=== PATIENT | male | born 2000 | race Caucasian/White ===

== ENCOUNTER → 2023-02-23 14:32 | Outpatient (BNVA) | payer OTHER, SELFPAY | PROVIDERS: Visit Provider Physician Assistant Medical | DX: S60.222A Contusion of left hand, initial encounter (principal); X50.1XXA Overexertion from prolonged static or awkward postures, initial encounter | CPT/HCPCS: 99204 ==

== ENCOUNTER → 2023-02-25 13:15 | Outpatient (BNVA) | payer OTHER, SELFPAY | PROVIDERS: Visit Provider Physician Assistant | DX: S60.222A Contusion of left hand, initial encounter (principal); X50.1XXA Overexertion from prolonged static or awkward postures, initial encounter | CPT/HCPCS: 99214 ==

== ENCOUNTER → 2023-02-28 15:45 | Outpatient (BNVA) | payer OTHER, SELFPAY | PROVIDERS: Visit Provider Physician Assistant Medical | DX: S62.122D Displaced fracture of lunate [semilunar], left wrist, subsequent encounter for fracture with routine healing (principal); X50.1XXD Overexertion from prolonged static or awkward postures, subsequent encounter | CPT/HCPCS: 99213 ==

== ENCOUNTER 2023-09-10 03:22 | Emergency (ER) | payer OTHER, SELFPAY ==
--- NOTE | ~2023-09-10 | XR_ITS ---
EXAMINATION: XR HAND, LEFT CLINICAL INFORMATION: Fall. Pain. COMPARISON: 02/23/2023 TECHNIQUE: PA, lateral, and oblique views of the left hand. FINDINGS: There is a distal radial plate and multiple screws in place bridging a distal radial fracture. Dense lunate is again seen similar to previous. No acute fracture identified. There is soft tissue swelling about the distal forearm. XR/XR hand LT 2V IMPRESSION: Status post ORIF of distal radial fracture. No acute fracture identified. Soft tissue swelling about the distal forearm.
--- NOTE | ~2023-09-10 | XR_ITS ---
EXAMINATION: XR FOREARM, LEFT CLINICAL INFORMATION: Fall. Pain. COMPARISON: Correlation made with hand x-ray performed 09/09/2023 TECHNIQUE: AP and lateral views of the left forearm were obtained. FINDINGS: There is a distal radial plate and multiple screws in place bridging a distal radial fracture, similar to previous. There is a 3 mm overlap of fracture fragments. No other fracture is seen. There is soft tissue swelling about the distal forearm. A dense lunate is again seen. XR/XR forearm LT 2V IMPRESSION: 1. Status post ORIF of distal radial fracture. 2. No other fracture is seen. 3. Dense lunate.
[2023-09-10 03:33] VITALS: BP 142/94; PULSE 106; RESP 20; TEMP 36.6; O2SAT 97; BMI 48.5
== END 2023-09-10 07:02 | disposition left against medical advice (07) ==
PROVIDERS: Emergency Provider Emergency Medicine
DX: M79.602 Pain in left arm (principal)
CPT/HCPCS: 73090; 73120; 99281; 99283